=== PATIENT | female | born 1990 | race American Indian/Alaskan Native ===

== ENCOUNTER 2017-02-04 14:49 | Emergency (ER) | payer SELFPAY ==
[2017-02-04 15:44] LABS: Hematocrit 36.4 % (30.3-42.9); Hemoglobin 12.5 gm/dl (10.1-14.3); Mean Corpuscular HGB Conc 34 % (30-34); Mean Corpuscular Hemoglobin 30 pg (28-32); Mean Corpuscular Volume 87 fl (79-97); Platelet Count 275 K/mm3 (140-440); Red Blood Count 4.19 M/mm3 (3.65-5.03); Red Cell Distribution Width 13.8 % (13.2-15.2)
[2017-02-04 16:27] LABS: Bilirubin,Urine NEG (Negative); Blood,Urine LG (Negative); Ketones,Urine NEG (Negative); Leukocyte Esterase,Urine NEG (Negative); Mucus,Urine FEW /HPF; Nitrite,Urine NEG (Negative); Protein,Urine <15 mg/dL mg/dL (Negative); Urobilinogen,Urine < 2.0 mg/dL (<2.0)
[2017-02-04 16:30] LABS: Blastocytes % (Manual) 0 %
[2017-02-04 16:31] LABS: Diff Status Complete; Ovalocytes 1+; Poikilocytosis Few
--- NOTE | 2017-02-04 19:32 | Ultrasound Report ---
FINAL REPORT EXAM: US OB < = 14 WEEKS FETUS HISTORY: vag bleeding . LMP 12/25/2016 with estimated age 5 weeks 6 days and EDC 10/01/2017. beta HCG quantitation [id number]. TECHNIQUE: Ultrasound of the pelvis using transabdominal and transvaginal imaging PRIORS: None. FINDINGS: Uterus: Uterus is enlarged in size, retroflexed in position, and normal and homogeneous in echogenicity without focal fibroid formation. The uterus measures 10.3 x 4.0 x 6.5 cm in size. There is a single early viable intrauterine gestation noted. Intrauterine gestation: There is a single intrauterine gestation identified with both a pole and yolk sac. heart rate is monitored at 105 BPM using M-mode doppler. [place]-rump length measurement of 2.8 mm corresponds to estimated age 5 weeks 6 days with EDC 10/01/2017. A moderate subchorionic hemorrhage is noted measuring 1.8 x 1.6 x 1.6 cm located along the caudal margin of the gestational sac. Ovaries: Both ovaries appear normal in size and echogenicity with normal blood flow bilaterally. The right ovary measures 4.4 x 2.5 x 2.9 cm and the left ovary measures 3.9 x 1.7 x 2.7 cm in size. There is a complex cystic focus measuring 2.6 cm in the right ovary, likely the corpus luteum. Other: There is no evidence for solid adnexal mass is seen. There is no free fluid in the cul-de-sac. Trace amount of free fluid along the right adnexa is noted. IMPRESSION: Single intrauterine viable with an approximate age of 5 weeks 6 days. A moderate subchorionic hemorrhage is noted along the caudal margin of the gestational sac.
--- NOTE | 2017-02-04 19:32 | Ultrasound Report ---
FINAL REPORT EXAM: US OB TRANSVAGINAL HISTORY: vag bleeding . LMP 12/25/2016 with estimated age 5 weeks 6 days and EDC 10/01/2017. beta HCG quantitation [id number]. TECHNIQUE: Ultrasound of the pelvis using transabdominal and transvaginal imaging PRIORS: None. FINDINGS: Uterus: Uterus is enlarged in size, retroflexed in position, and normal and homogeneous in echogenicity without focal fibroid formation. The uterus measures 10.3 x 4.0 x 6.5 cm in size. There is a single early viable intrauterine gestation noted. Intrauterine gestation: There is a single intrauterine gestation identified with both a pole and yolk sac. heart rate is monitored at 105 BPM using M-mode doppler. [place]-rump length measurement of 2.8 mm corresponds to estimated age 5 weeks 6 days with EDC 10/01/2017. A moderate subchorionic hemorrhage is noted measuring 1.8 x 1.6 x 1.6 cm located along the caudal margin of the gestational sac. Ovaries: Both ovaries appear normal in size and echogenicity with normal blood flow bilaterally. The right ovary measures 4.4 x 2.5 x 2.9 cm and the left ovary measures 3.9 x 1.7 x 2.7 cm in size. There is a complex cystic focus measuring 2.6 cm in the right ovary, likely the corpus luteum. Other: There is no evidence for solid adnexal mass is seen. There is no free fluid in the cul-de-sac. Trace amount of free fluid along the right adnexa is noted. IMPRESSION: Single intrauterine viable with an approximate age of 5 weeks 6 days. A moderate subchorionic hemorrhage is noted along the caudal margin of the gestational sac.
[2017-02-04 21:05] LABS: Anion Gap 20 mmol/L; BUN/Creatinine Ratio 18; Blood Urea Nitrogen 9 mg/dL (7-17); Calcium 9.4 mg/dL (8.4-10.2); Carbon Dioxide 22 mmol/L (22-30); Chloride 97.5 mmol/L (98-107); Glucose 97 mg/dL (65-100); Potassium 4.4 mmol/L (3.6-5.0); Sodium 135 mmol/L (137-145)
--- NOTE | 2017-02-04 22:57 | Emergency Department Report ---
ED HPI - General Chief complaint: Vaginal Bleeding Stated complaint: VAGINAL BLEEDING Time Seen by Provider: 02/04/17 20:42 Source: patient Mode of arrival: Ambulatory Limitations: No Limitations - History of Present Illness Initial comments: 27-year-old female past medical history none presents with complaint of vaginal bleeding since this morning. Patient states she is approximately 6 weeks last menstrual period was 12/25/16. Patient states she had slight crampy pain earlier today and some heavy clots which passed this morning. Now bleeding has slowed down. Patient denies fever chills nausea vomiting abdominal pain at this time. States she has been looking for an OB/ [facility] but has not set up follow-up yet. Denies any dysuria. MD Complaint: vaginal bleeding -: This morning Quality: cramping Consistency: constant Improves with: none Worsens with: none Vaginal bleeding: none :: No OB History - Current : no complications - Related Data : 1 Para: 0 Previous Rx's Medication Instructions Recorded Last Taken Type Acetaminophen 500 mg PO Q8H PRN #30 capsule 02/04/17 Unknown Rx Allergies Allergy/AdvReac Type Severity Reaction Status Date / Time No Known Allergies Allergy Unverified 02/04/17 15:06 ED Review of Systems ROS: Stated complaint: VAGINAL BLEEDING Other details as noted in HPI Constitutional: denies: chills, fever Eyes: denies: eye pain, eye discharge, vision change ENT: denies: ear pain, throat pain Respiratory: denies: cough, shortness of breath, wheezing Cardiovascular: denies: chest pain, palpitations Endocrine: no symptoms reported Gastrointestinal: denies: abdominal pain, nausea, diarrhea Genitourinary: as per HPI, other (vaginal bleeding since this morning). denies : urgency, dysuria, discharge Musculoskeletal: denies: back pain, joint swelling, arthralgia Skin: denies: rash, lesions Neurological: denies: headache, weakness, paresthesias Psychiatric: denies: anxiety, depression Hematological/Lymphatic: denies: easy bleeding, easy bruising ED Past Medical Hx - Past Medical History Previous Medical History?: No - Surgical History Past Surgical History?: No - Social History Smoking Status: Never Smoker Substance Use Type: None - Medications Home Medications: Home Medications Medication Instructions Recorded Confirmed Last Taken Type Acetaminophen 500 mg PO Q8H PRN #30 capsule 02/04/17 Unknown Rx ED Physical Exam - General Limitations: No Limitations General appearance: alert, in no apparent distress - Head Head exam: Present: atraumatic, normocephalic - Eye Eye exam: Present: normal appearance, PERRL, EOMI - ENT ENT exam: Present: mucous membranes moist - Neck Neck exam: Present: normal inspection - Respiratory Respiratory exam: Present: normal lung sounds bilaterally. Absent: respiratory distress - Cardiovascular Cardiovascular Exam: Present: regular rate, normal rhythm. Absent: systolic murmur, diastolic murmur, rubs, gallop - GI/Abdominal GI/Abdominal exam: Present: soft, normal bowel sounds - External exam: Present: normal external exam Speculum exam: Present: vaginal bleeding (some dark clots in vaginal vault no active hemorrhage. No visible lesions) Bi-manual exam: Present: normal bi-manual exam - Extremities Exam Extremities exam: Present: normal inspection - Back Exam Back exam: Present: normal inspection - Neurological Exam Neurological exam: Present: alert, oriented X3, CN II-XII intact, normal gait - Expanded Neurological Exam Expanded Patient oriented to: Present: person, place, time Cranial nerves: EOM's Intact: Normal, Facial Sensation: Normal Cerebellar function: Finger to Nose: Normal, Heel to [place]: Normal Sensory exam: Upper Extremity Light Touch: Normal, Lower Extremity Light Touch: Normal Motor strength exam: RUE: 5, LUE: 5, RLE: 5, LLE: 5 DTR: tricep (R): 3+, tricep (L): 3+, knee (R): 3+, knee (L): 3+ Best Eye Response (Blaine): (4) open spontaneously Best Motor Response (Blaine): (6) obeys commands Best Verbal Response (Liz): (5) oriented Blaine Total: 15 - Psychiatric Psychiatric exam: Present: normal affect, normal mood - Skin Skin exam: Present: warm, dry, intact, normal color. Absent: rash ED Course Vital Signs 02/04/17 02/04/17 15:01 21:17 Temperature 99 F Pulse Rate 76 Respiratory 18 18 Rate Blood Pressure 107/62 O2 Sat by Pulse 100 Oximetry ED Medical Decision Making - Lab Data Result diagrams: 02/04/17 15:12 02/04/17 20:43 - Medical Decision Making A/P: Threatened miscarriage 1- ultrasound shows intrauterine gestation at approximately 5 weeks 6 days which is viable at this time with associated subchorionic bleed. Patient Rh+. CBC within normal limits. Patient has minimal to no bleeding at time of examination. [email or web address] 2- urinalysis unremarkable. Wet prep unremarkable. No clinical signs of cervicitis and no history suggestive of STDs at this time. 3- I emphasized the importance of follow-up with [facility] to the patient. 4- case discussed with Dr. Bui Critical care attestation.: If time is entered above; I have spent that time in minutes in the direct care of this critically ill patient, excluding procedure time. ED Disposition Clinical Impression: Threatened , Vaginal bleeding during , antepartum Disposition: TO HOME OR SELFCARE Is pt being admited?: No Does the pt Need Aspirin: No Condition: Stable Instructions: Threatened Miscarriage (ED), (ED) Prescriptions: Acetaminophen 500 mg PO Q8H PRN #30 capsule PRN Reason: Pain Referrals: [facility] [Provider Group] - 3-5 Days [facility] [Provider Group] - 3-5 Days [facility] [Provider Group] - 3-5 Days [facility] [Provider Group] - 3-5 Days Forms: Accompanied Note Time of Disposition: 23:02
[2017-02-04 23:14] VITALS: BP 107/71
== END 2017-02-04 23:11 | disposition home or self-care (01) ==
LOC: ED 14:49
DX: O20.0 Threatened abortion (principal); Z3A.08 8 weeks gestation of pregnancy
CPT/HCPCS: 36415; 76801; 76817; 80048; 81001; 84702; 85007; 85025; 86850; 86900; 86901; 87210; 87591; 99284